=== PATIENT | male | born 1975 | race Caucasian/White ===

== ENCOUNTER 2016-07-12 07:07 | Outpatient (CLI) ==
[2016-07-12 07:34] LABS: BASOPHILS # (AUTO) 0.1 K/uL (0-0.2); BASOPHILS % (AUTO) 0.7 % (0.0-3.0); EOSINOPHILS # (AUTO) 0.3 K/ul (0.0-0.7); HEMATOCRIT 43.9 % (42.0-52.0); HEMOGLOBIN 15.2 g/dl (14.0-18.0); IMMATURE GRANULOCYTE % (AUTO) 0.4 % (0.0-5.0); LYMPHOCYTES # (AUTO) 3.1 K/uL (0.60-3.4); LYMPHOCYTES % (AUTO) 36.6 (10.0-50.0); MEAN CORPUSCULAR HGB CONC 34.6 (31.8-35.4); MONOCYTES # (AUTO) 0.7 K/uL (0.4-2.0); MONOCYTES % (AUTO) 8.6 (0-10); NEUTROPHILS # (AUTO) 4.3 K/ul (2.0-6.9); NEUTROPHILS % (AUTO) 50.7; PLATELET COUNT 224 10^3/uL (140-440); RED BLOOD COUNT 5.42 10^6/ul (4.70-6.10); WHITE BLOOD COUNT 8.37 K/ul (4.2-10.2)
[2016-07-12 07:57] LABS: ALBUMIN 3.9 g/dL (3.4-5.0); ALBUMIN/GLOBULIN RATIO 1.11; ANION GAP 11.9; BILIRUBIN,TOTAL 0.57 mg/dL (0.00-1.20); BUN/CREATININE RATIO 10.89; CALCIUM 9.4 mg/dL (8.2-10.2); CHOL/HDL RATIO 4.2 (4.5-6.4); CREATININE 1.01 mg/dL (0.60-1.10); POTASSIUM 3.9 mmol/L (3.5-5.1); TOTAL PROTEIN 7.4 g/dL (6.4-8.2)
--- NOTE | 2016-07-12 09:20 | CT ---
EXAM: CT ABDOMEN AND PELVIS HISTORY: Abdominal pain. Nausea, vomiting. Previous appendectomy. TECHNIQUE: CT abdomen and pelvis with intravenous contrast. Images were reconstructed using 5 mm se ction thickness. Reformations were prepared. 75 mL Omnipaque. COMPARISON: 01/25/2013 FINDINGS: No focal hepatic or splenic lesions identified. Gallbladder is unremarkable. No common bile duct d ilatation is suggested. Pancreas is within normal limits. There is a small left adrenal nodule marco antonio suring approximately 1.3 cm. This is unchanged since prior study. Prior unenhanced exam demonstrat ed relative fatty attenuation of the nodule and this would be most consistent with an adenoma. Kidn eys and ureters are normal. Normal abdominal aorta. Several nonspecific bilateral inguinal lymph n odes are grossly stable. Unremarkable stomach. No appendix identified. Normal bowel gas pattern. Urinary bladder is grossl y normal. Prostate grossly within normal limits. No ascites or inflammatory infiltration of the ab dominal fat. Ventral abdominal wall demonstrates an umbilical hernia with a neck of about 3.7 cm. The size of th e hernia is grossly stable. There is a short segment of small bowel entering the hernia with no def inite obstruction or strangulation. Bones demonstrate moderate facet arthropathy of the lower spine . Lung bases are clear. No pneumoperitoneum. IMPRESSION: 1. Ventral abdominal wall demonstrates an umbilical hernia with a neck of about 3.7 cm. The size o f the hernia is grossly stable. There is a short segment of small bowel entering the hernia with no definite obstruction or strangulation. Bowel gas pattern is within normal limits. 2. Small, stable left adrenal nodule likely an adenoma. 3. Unremarkable gallbladder.
== END 2016-07-12 07:08 | disposition home or self-care (01) ==
LOC: RAD 07:07
PROVIDERS: ATTEND Nurse Practitioner Family
DX: R10.9 Unspecified abdominal pain (principal); R11.10 Vomiting, unspecified; E11.9 Type 2 diabetes mellitus without complications; Z90.49 Acquired absence of other specified parts of digestive tract
CPT/HCPCS: 36415; 80053; 80061; 82150; 83036; 83690; 85025

== ENCOUNTER 2017-02-24 10:16 | Outpatient (CLI) ==
[2017-02-24 10:35] LABS: BASOPHILS # (AUTO) 0.1 K/uL (0-0.2); BASOPHILS % (AUTO) 0.7 % (0.0-3.0); EOSINOPHILS # (AUTO) 0.2 K/ul (0.0-0.7); EOSINOPHILS % (AUTO) 2.5 % (0.0-7.0); HEMATOCRIT 42.6 % (42.0-52.0); HEMOGLOBIN 14.7 g/dl (14.0-18.0); IMMATURE GRANULOCYTE % (AUTO) 0.4 % (0.0-5.0); LYMPHOCYTES # (AUTO) 2.4 K/uL (0.60-3.4); LYMPHOCYTES % (AUTO) 29.2 (10.0-50.0); MEAN CORPUSCULAR HEMOGLOBIN 27.7 pg (27.0-31.0); MEAN CORPUSCULAR HGB CONC 34.5 (31.8-35.4); MEAN CORPUSCULAR VOLUME 80.4 fl (80.0-94.0); MONOCYTES # (AUTO) 0.6 K/uL (0.4-2.0); MONOCYTES % (AUTO) 7.2 (0-10); PLATELET COUNT 220 10^3/uL (140-440); WHITE BLOOD COUNT 8.25 K/ul (4.2-10.2)
[2017-02-24 11:12] LABS: ALBUMIN 3.7 g/dL (3.4-5.0); ALBUMIN/GLOBULIN RATIO 0.97; ANION GAP 13.3; BILIRUBIN,TOTAL 0.82 mg/dL (0.00-1.20); BUN/CREATININE RATIO 12.24; CALCIUM 9.5 mg/dL (8.2-10.2); CHOL/HDL RATIO 4.4 (4.5-6.4); CREATININE 0.98 mg/dL (0.60-1.10); POTASSIUM 4.3 mmol/L (3.5-5.1); TOTAL PROTEIN 7.5 g/dL (6.4-8.2)
== END 2017-02-24 10:17 | disposition home or self-care (01) ==
LOC: LAB 10:16
PROVIDERS: ATTEND Nurse Practitioner Family
DX: E11.9 Type 2 diabetes mellitus without complications (principal); I10 Essential (primary) hypertension
CPT/HCPCS: 36415; 80053; 80061; 83036; 84443; 85025

== ENCOUNTER 2017-06-15 06:18 | Outpatient (CLI) | END 2017-06-15 06:19 | disposition home or self-care (01) | LOC: LAB 06:18 | PROVIDERS: ATTEND Nurse Practitioner Family | DX: E11.9 Type 2 diabetes mellitus without complications (principal); I10 Essential (primary) hypertension | CPT/HCPCS: 36415; 80053; 83036 ==

== ENCOUNTER 2017-10-11 09:08 | Outpatient (CLI) | END 2017-10-11 09:09 | disposition home or self-care (01) | LOC: LAB 09:08 | PROVIDERS: ATTEND Nurse Practitioner Family | DX: E11.9 Type 2 diabetes mellitus without complications (principal); E11.42 Type 2 diabetes mellitus with diabetic polyneuropathy; I10 Essential (primary) hypertension | CPT/HCPCS: 36415; 80053; 80061; 83036; 85025 ==

== ENCOUNTER 2017-11-20 15:32 | Outpatient (CLI) | END 2017-11-20 15:33 | disposition home or self-care (01) | LOC: RHC-LAB 15:32 | PROVIDERS: ATTEND Nurse Practitioner Family | DX: R10.9 Unspecified abdominal pain (principal); R19.7 Diarrhea, unspecified | CPT/HCPCS: 36415; 80053; 82150; 83690; 85025; 86677 ==

== ENCOUNTER 2018-01-11 09:11 | Outpatient (CLI) | END 2018-01-11 09:12 | disposition home or self-care (01) | LOC: RHC-LAB 09:11 | PROVIDERS: ATTEND Nurse Practitioner Family | DX: E11.9 Type 2 diabetes mellitus without complications (principal) | CPT/HCPCS: 36415; 80053; 83037 ==

== ENCOUNTER 2019-01-22 11:31 | Emergency (ER) ==
[2019-01-22 11:50] VITALS: BP 153/97; TEMP 97.7; BMI 39.3
--- NOTE | 2019-01-22 12:14 | ED.PDOC ---
General ED Provider: Dr. CODY LI Chief Complaint: Back Pain Stated Complaint: Patient complains of back pain at base of rigth scapula. Patient stated he fell of ladder last Monday. Patient stated he was approximately 6 feet in the air. Patient stated he struck wall with his back. Patient stated the pain increases on sneezing or coughing. Time Seen by Physician: 12:05 Mode of Arrival: Walk-In Information Source: Patient Nursing and Triage Documentation Reviewed and Agree: Yes Does patient meet sepsis criteria?: No System Inflammatory Response Syndrome: Not Applicable Sepsis Protocol: For patient's 13 years and over: Temp is 96.8 and below OR 101 and greater Pulse >90 BPM Resp >20/minute Acutely Altered Mental Status Are patient's symptoms suggestive of a new infection, such as: -Pneumonia -Skin, Soft Tissue -Endocarditis -UTI -Bone, Joint Infection -Implantable Device -Acute Abdominal Infection -Wound Infection -Meningitis -Blood Stream Catheter Infection -Unknown Musculoskeletal Complaint Exam - Back Pain Complaint/Exam Mechanism of Injury: Reports: Trauma Onset/Duration: 2 days Symptoms Are: Still present Timing: Intermittent Episodes Lasting: Hours Initial Severity: Moderate Current Severity: Moderate Location: Reports: Diffuse Character: Reports: Sharp, Aching, Spasmodic Aggravating: Reports: Movements, Lifting, Bending Alleviating: Reports: Rest Associated Signs and Symptoms: Denies: Swelling, Redness, Bruising, Fever, Weakness, Numbness, Tingling, Abdominal pain, Flank pain, Bladder incontinence, Bowel incontinence, Weight loss, Pain with weight bearing Related History: Denies: Similar episode TAD Risk Factors: Reports: None AAA Risk Factors: Reports: None Cauda Equina Risk Factors: Reports: None Epidural Abcess Risk Factors: Reports: None Related Surgical History: Reports: None Focal Tenderness: Yes (Mid thoracic-Lt Paraspinal) Paraspinal Muscle Tenderness: Yes (Mid thoracic) Paraspinal Muscle Spasm: Yes Scoliosis: No Lordosis: No Kyphosis: No SLR Test: Right Negative, Left Negative Hip Motion Testing Pain: Right Negative, Left Negative Focal Weakness: Present: None Focal Sensory Loss: Present: None Gait: Present: Normal Differential Diagnoses: Herniated Disk, Strain, Sprain, Other (Compression fracture) Review of Systems - Review Of Systems Constitutional: Reports: No symptoms Eyes: Reports: No symptoms Ears, Nose, Mouth, Throat: Reports: No symptoms Respiratory: Reports: No symptoms Cardiac: Reports: No symptoms GI: Reports: No symptoms : Reports: No symptoms Musculoskeletal: Reports: Back pain, Muscle pain, Muscle stiffness Skin: Reports: No symptoms Neurological: Reports: No symptoms Endocrine: Reports: No symptoms Hematologic/Lymphatic: Reports: No symptoms All Other Systems: Reviewed and Negative Past Medical History - Past Medical History Previously Healthy: Yes Endocrine: Reports: None Cardiovascular: Reports: None Respiratory: Reports: None Hematological: Reports: None Gastrointestinal: Reports: None Genitourinary: Reports: None Neuro/Psych: Reports: None Musculoskeletal: Reports: None Cancer: Reports: None - Surgical History General Surgical History: Reports: None - Family History Family History: Reports: None - Social History Smoking Status: Never smoker Hx Substance Use: No Alcohol Screening: None - Immunizations Tetanus Shot up to Date: Yes Physical Exam - Physical Exam Appearance: Well-appearing, No pain distress, Well-nourished Eyes: MARCOS, EOMI, Conjunctiva clear ENT: Ears normal, Nose normal, Oropharynx normal Respiratory: Airway patent, Breath sounds clear, Breath sounds equal, Respirations nonlabored Cardiovascular: RRR, Pulses normal, No rub, No murmur GI/: Soft, Nontender, No masses, Bowel sounds normal, No Organomegaly Musculoskeletal: Normal strength, ROM intact, No edema, No calf tenderness Skin: Warm, Dry, Normal color Neurological: Sensation intact, Motor intact, Reflexes intact, Cranial nerves intact, Alert, Oriented Psychiatric: Affect appropriate, Mood appropriate Interpretation - Radiology Interpretation Radiology Interpretation By: Radiologist Radiology Results: No acute changes (Thoracic and lumbar spine) Critical Care Note - Critical Care Note Total Time (mins): 0 Course - Course Orders, Labs, Meds: Orders Category Date Time Status Ketorolac Tromethamine [Toradol] MEDS 01/22/19 12:27 Discontinued 30 mg IM ONCE STA Orphenadrine Citrate [Norflex] MEDS 01/22/19 12:27 Discontinued 100 mg PO ONCE STA LUMBAR SPINE, MIN 4 VIEWS Stat RADS 01/22/19 12:15 Completed THORACIC SPINE, 3 VIEWS Stat RADS 01/22/19 12:15 Completed Medications Discontinued Medications Generic Name Dose Route Start Last Admin Trade Name Freq PRN Reason Stop Dose Admin Ketorolac Tromethamine 30 mg 01/22/19 12:27 01/22/19 12:50 Toradol IM 01/22/19 12:28 30 mg ONCE STA Administration Orphenadrine Citrate 100 mg 01/22/19 12:27 01/22/19 12:49 Norflex PO 01/22/19 12:28 100 mg ONCE STA Administration Vital Signs: Temp Pulse Resp BP Pulse Ox 01/22/19 11:32 97.7 F 87 18 153/97 H 91 L Departure - Departure Time of Disposition: 13:15 Disposition: HOME SELF-CARE Discharge Problem: Thoracic myofascial strain Instructions: Lower Back Exercises (ED), Thoracic Back Strain (ED) Condition: Good Pt referred to PMD for follow-up: Yes (5-6 days) IPMP verified?: No Additional Instructions: Apply warm moist heat to area of discomfort 20 min twice daily Take meds as directed Work at your own will and rec reduction and abstain until asymptomatic Follow up pcp as needed Prescriptions: Ibuprofen 600 mg PO Q6HR PRN #40 tablet PRN Reason: Back Pain Cyclobenzaprine HCl [Flexeril] 10 mg PO BID PRN #20 tablet PRN Reason: Muscle Spasm Allergies/Adverse Reactions: Allergies No Known Allergies Allergy (Verified 01/22/19 11:43) Home Medications: Ambulatory Orders Cyclobenzaprine HCl [Flexeril] 10 mg PO BID PRN #20 tablet 01/22/19 Ibuprofen 600 mg PO Q6HR PRN #40 tablet 01/22/19 Disposition Discussed With: Patient
[2019-01-22] MEDS ORDERED: NORFLEX PO STA (12:27)
[2019-01-22] MEDS ORDERED: TORADOL IM STA (12:27)
--- NOTE | 2019-01-22 12:58 | DI ---
EXAM: Three views of the thoracic spine. History: Left thoracic back pain. Findings: No acute fracture or subluxation of the thoracic spine. Mild to moderate multilevel disc space narrowing with endplate sclerosis and osteophyte formation. Impression: 1. No acute osseous abnormality of the thoracic spine. 2. Mild to moderate degenerative disc disease
--- NOTE | 2019-01-22 12:59 | DI ---
EXAM: Five views of the lumbar spine. History: Lower back pain and trauma. Findings: No acute fracture or subluxation of the lumbar spine. Moderate disc space narrowing at L2 -L3 with endplate sclerosis and osteophyte formation. Mild to moderate disc space narrowing seen els ewhere. Moderate facet hypertrophy within the lower lumbar spine. Impression: 1. No acute osseous abnormality of the lumbar spine. 2. Degenerative changes
== END 2019-01-22 13:32 | disposition home or self-care (01) ==
LOC: ED 11:31
DX: S29.012A Strain of muscle and tendon of back wall of thorax, initial encounter (principal); W11.XXXA Fall on and from ladder, initial encounter
CPT/HCPCS: 96372; 99283